=== PATIENT | male | born 1955 | race Caucasian/White ===

== ENCOUNTER → 2016-03-12 | Outpatient (CLI) | payer MEDICARE ==
--- NOTE | 2016-03-12 15:35 | CT ---
EXAMINATION TYPE: CT brain wo con DATE OF EXAM: 03/12/2016 3:31 PM HISTORY: Syncopal episodes x [address] loss[address] DLP: 1036.00 mGycm. Automated Exposure Control for Dose Reduction was Utilized. TECHNIQUE: CT scan of the head is performed without contrast. COMPARISON: CT brain September 14, 2013. FINDINGS: There is no acute intracranial hemorrhage or midline shift identified. There is diffuse v entricular and sulcal prominence consistent with diffuse age-related cerebral atrophy. There is low- attenuation in the periventricular white matter consistent with chronic small vessel ischemic change. Patchy soft tissue density bilateral external auditory canals likely reflects cerumen. There is mode rate calcified atherosclerotic change of distal internal carotid arteries present bilaterally. The gl obes are intact and the visualized sinuses are clear. IMPRESSION: No acute intracranial hemorrhage or midline shift. There is mild diffuse age-related ce rebral atrophy and chronic small vessel ischemic change redemonstrated.
--- NOTE | 2016-03-12 22:51 | US ---
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 EXAM MEASUREMENTS: RIGHT: Peak Systolic Velocity (PSV) cm/sec ----- Right CCA: 73.2 ----- Right ICA: 97.9 ----- Right ECA: 93.4 ICA/CCA ratio: 1.3 RIGHT: End Diastole cm/sec ----- Right CCA: 29.5 ----- Right ICA: 32.7 ----- Right ECA: 14.6 LEFT: Peak Systolic Velocity (PSV) cm/sec ----- Left CCA: 68.0 ----- Left ICA: occluded ----- Left ECA: 93.1 ICA/CCA ratio: --- LEFT: End Diastole cm/sec ----- Left CCA: 14.6 ----- Left ICA: occluded ----- Left ECA: 18.2 VERTEBRALS (direction of flow): Right Vertebral: Antegrade Left Vertebral: Antegrade FINDINGS: Mild plaque seen on right. Left ICA is occluded, there is no flow throughout the entire ICA, loss of end diastolic flow in bulb. IMPRESSION: 1. 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 This appears chronic and reported by previous [facility] dated 04/20/2012. 2. No significant hemodynamic stenosis involving the right ICA.
== END | disposition home or self-care (01) ==
LOC: RADCTMAIN 15:12
PROVIDERS: ATTEND Family Medicine
DX: I65.22 Occlusion and stenosis of left carotid artery (principal); G31.9 Degenerative disease of nervous system, unspecified; I67.82 Cerebral ischemia
CPT/HCPCS: 70450; 93880

== ENCOUNTER → 2016-04-03 | Outpatient (CLI) | payer MEDICARE ==
--- NOTE | 2016-04-04 11:44 | ECHOF ---
Referral Reason:G45.4 Transient Global Amnesia MEASUREMENTS -------- HEIGHT: 170.2 cm WEIGHT: 86.2 kg BP: 107/57 RVIDd: 3.2 cm (< 3.3) IVSd: 1.1 cm (0.6 - 1.1) LVIDd: 4.4 cm (3.9 - 5.3) LVPWd: 1.1 cm (0.6 - 1.1) IVSs: 1.4 cm LVIDs: 2.9 cm LVPWs: 1.9 cm LA Diam: 3.9 cm (2.7 - 3.8) LAESV Index (A-L): 19.64 ml/m Ao Diam: 3.4 cm (2.0 - 3.7) AV Cusp: 2.2 cm (1.5 - 2.6) MV EXCURSION: 16.659 mm (> 18.000) MV EF SLOPE: 74 mm/s (70 - 150) EPSS: 1.1 cm MV E Darrin: 0.91 m/s MV DecT: 233 ms MV A Darrin: 1.01 m/s MV E/A Ratio: 0.90 FINDINGS -------- Sinus rhythm. This was a technically good study. The left ventricular size is normal. There is borderline concentric left ventricular hypertrophy. Overall left ventricular systolic function is normal with, an EF between 60 - 65 %. The right ventricle is normal in size. Normal LA size by volume 22+/-6 ml/m2. The right atrium is normal in size. Aortic valve is trileaflet and is mildly thickened. Mild mitral annular calcification present. Mild mitral regurgitation is present. The tricuspid valve appears structurally normal. Pulmonic valve appears structurally normal. The aortic root size is normal. Normal inferior vena cava with normal inspiratory collapse consistent with estimated right atrial pressure of 5 mmHg. There is no pericardial effusion. CONCLUSIONS -------- 1. Sinus rhythm. 2. Mild mitral annular calcification present. 3. Mild mitral regurgitation is present. 4. The tricuspid valve appears structurally normal. 5. Pulmonic valve appears structurally normal. 6. The aortic root size is normal. 7. Normal inferior vena cava with normal inspiratory collapse consistent with estimated right atrial pressure of 5 mmHg. 8. There is no pericardial effusion. 9. This was a technically good study. 10. The left ventricular size is normal. 11. There is borderline concentric left ventricular hypertrophy. 12. Overall left ventricular systolic function is normal with, an EF between 60 - 65 %. 13. The right ventricle is normal in size. 14. Normal LA size by volume 22+/-6 ml/m2. 15. The right atrium is normal in size. 16. Aortic valve is trileaflet and is mildly thickened. BANDER OPERATOR: Maribel Neal RDCS
== END | disposition home or self-care (01) ==
LOC: RADECHMAIN 14:14
PROVIDERS: ATTEND Family Medicine
DX: I08.0 Rheumatic disorders of both mitral and aortic valves (principal)
CPT/HCPCS: 93306

== ENCOUNTER → 2016-09-23 | Outpatient (CLI) | payer MEDICARE ==
[2016-09-23 14:34] LABS: Basophils # (A) 0.1 k/uL (0-0.2); Basophils % (A) 1 %; CH 32.8; CHCM 34.2; Eosinophils # (A) 0.3 k/uL (0-0.7); Eosinophils % (A) 4 %; HCT 48.2 % (39.0-53.0); HGB 15.9 gm/dL (13.0-17.5); Luc # (Auto) 0.16; Luc % (Auto) 2; Lymphocytes # (A) 2.8 k/uL (1.0-4.8); Lymphocytes % (A) 37 %; MCH 31.7 pg (25.0-35.0); MCHC 32.9 g/dL (31.0-37.0); MCV 96.4 fL (80.0-100.0); Mean Platelet Volume 7.6; Monocytes # (A) 0.5 k/uL (0-1.0); Monocytes % (A) 6 %; Neutrophils # (A) 3.9 k/uL (1.3-7.7); Neutrophils % (A) 51 %; RDW 13.8 % (11.5-15.5); WBC 7.8 k/uL (3.8-10.6); WBC (Perox) 7.56
[2016-09-23 14:45] LABS: ALT 46 U/L (21-72); AST 30 U/L (17-59); Alkaline Phosphatase 119 U/L (38-126); Anion Gap 10 mmol/L; Blood Urea Nitrogen 13 mg/dL (9-20); Calcium 9.4 mg/dL (8.4-10.2); Carbon Dioxide 28 mmol/L (22-30); Chloride 101 mmol/L (98-107); Glucose 88 mg/dL (74-99); Non-African American GFR(MDRD) >60 (>60 ml/min/1.73 sqM); Potassium 4.8 mmol/L (3.5-5.1); Sodium 139 mmol/L (137-145); Total Bilirubin 0.5 mg/dL (0.2-1.3); Total Protein 7.1 g/dL (6.3-8.2)
--- NOTE | 2016-09-23 16:30 | XR ---
EXAMINATION TYPE: XR chest 2V DATE OF EXAM: 09/23/2016 COMPARISON: Prior chest x-ray 12/01/2013 HISTORY: Shortness of breath, R06.02 TECHNIQUE: Frontal and lateral views of the chest are obtained. FINDINGS: There is no focal air space opacity, pleural effusion, or pneumothorax seen. The cardiac silhouette size is stable. Prominent lung volumes suggest underlying COPD. Patient is again rotated. The osseous structures are intact. IMPRESSION: No acute cardiopulmonary process.
== END | disposition home or self-care (01) ==
LOC: LABWHC1 13:58
PROVIDERS: ATTEND Family Medicine
DX: R06.02 Shortness of breath (principal); R06.00 Dyspnea, unspecified; R53.83 Other fatigue
CPT/HCPCS: 36415; 71020; 80053; 84439; 84443; 85025